=== PATIENT | female | born 1950 | race Caucasian/White ===

== ENCOUNTER 2022-05-24 18:43 | Emergency (ER) | payer MEDICARE, OTHER | END 2022-05-24 20:52 | disposition home or self-care (01) | LOC: JD.ED 18:43 | DX: M79.89 Other specified soft tissue disorders (principal); I10 Essential (primary) hypertension; Z91.041 Radiographic dye allergy status; Z79.899 Other long term (current) drug therapy; Z86.16 Personal history of COVID-19; Z90.49 Acquired absence of other specified parts of digestive tract; Z90.710 Acquired absence of both cervix and uterus | CPT/HCPCS: 36415; 85610; 85730; 93971-26-RT; 93971-RT; 99283; 99284 ==

== ENCOUNTER 2023-04-02 02:15 | Emergency (ER) | payer MEDICARE, OTHER ==
[2023-04-02] MEDS ORDERED: Sodium Chloride 0.9% 1,000 ML IV ONE (02:35)
[2023-04-02] MEDS ORDERED: Ondansetron 4 MG/2 ML SDV IVPUSH ONE (02:35)
[2023-04-02 02:42] LABS: HEMATOCRIT 40.8 % (34.1-44.9); MEAN CORPUSCULAR HEMOGLOBIN 30.5 pg (25.6-32.2); MEAN CORPUSCULAR HGB CONC 34.3 g/dl (32.2-35.5); MEAN CORPUSCULAR VOLUME 88.9 fl (79.4-94.8); MEAN PLATELET VOLUME 9.3 fl (9.4-12.3); PLATELET COUNT,PLT 379 K/mm3 (182-369); RED BLOOD CELL COUNT 4.59 M/mm3 (3.98-5.22); WHITE BLOOD CELL COUNT,WBC 22.88 K/mm3 (3.98-10.04)
[2023-04-02 02:59] LABS: A/G RATIO 0.9 (1-2); ALBUMIN 3.5 g/dl (3.4-5.0); ANION GAP 22.3 (5-15); BILIRUBIN TOTAL 1.7 mg/dL (0.2-1.0); C-REACTIVE PROTEIN 5.7 mg/dL (<1.0); EST CRCL DRUG DOSING (CG) 52.56 mL/min; MAGNESIUM 1.7 mg/dL (1.8-2.4); POTASSIUM,K 3.3 mEq/L (3.5-5.1); PROTEIN TOTAL,TP 7.3 g/dl (6.4-8.2)
[2023-04-02 03:10] LABS: BAND PERCENT MAN 1 % (0-10); BASOPHILS PERCENT MAN 0 (0.1-1.2); EOSINOPHILS PERCENT MAN 1 % (0.7-5.8); LYMPHOCYTES % ATYPICAL MANUAL 0 %; LYMPHOCYTES PERCENT MAN 5 % (20-40); MONOCYTES PERCENT MAN 5 % (2-10); PLATELET COUNT ESTIMATE ADEQUATE
[2023-04-02 03:12] LABS: APPEARANCE,URINE CLEAR (Clear); BILIRUBIN,URINE 1+ (Negative); COLOR,URINE YELLOW (Yellow); GLUCOSE,URINE NEGATIVE (Negative); KETONES,URINE 4+ (Negative); LEUKOCYTE ESTERASE,URINE NEGATIVE (Negative); NITRITE,URINE POSITIVE (Negative); OCCULT BLOOD,URINE TRACE-INTACT (Negative); PROTEIN,URINE 1+ (Negative)
[2023-04-02 03:21] LABS: BACTERIA,URINE MODERATE /hpf (FEW); RBC,URINE 0-5 /hpf (0-5); SQUAMOUS EPITHELIAL CELLS,UR 0-5 /hpf (0-5)
[2023-04-02 03:22] LABS: HYALINE CASTS,URINE 20-30 /lpf (0-5); MUCUS,URINE MANY /hpf (FEW)
[2023-04-02] MEDS ORDERED: cefTRIAXone 1 GM in Sodium Chloride 0.9% 100 ML IV STA (03:45)
== END 2023-04-02 05:57 | disposition home or self-care (01) ==
LOC: JD.ED 02:15
DX: A08.4 Viral intestinal infection, unspecified (principal); I95.1 Orthostatic hypotension; N39.0 Urinary tract infection, site not specified; E78.00 Pure hypercholesterolemia, unspecified; I10 Essential (primary) hypertension; Z79.899 Other long term (current) drug therapy; Z91.041 Radiographic dye allergy status; Z86.16 Personal history of COVID-19
CPT/HCPCS: 36415; 80053; 81001; 83735; 85007; 85027; 86140; 87086; 87088; 87186; 96361; 96365; 96375; 99284; J0696; J2405; J3490; J7030

== ENCOUNTER 2023-04-06 08:34 | Inpatient (IN) | payer MEDICARE, OTHER ==
[2023-04-06] MEDS ORDERED: Aspirin 81 MG Tab.Chew PO ONE (08:58)
[2023-04-06] MEDS ORDERED: Morphine 2 MG/ML SYRINGE IVPUSH ONE ×3 (09:02→12:16)
[2023-04-06] MEDS: Sodium Chloride 0.9% 10 ML Syringe FLUSH PRN ×2 (09:10→11:03)
[2023-04-06 09:25] LABS: INR 1.07; PROTHROMBIN TIME 11.4 SECONDS (9.7-12.0)
[2023-04-06 09:32] LABS: A/G RATIO 0.9 (1-2); ALBUMIN 3.8 g/dl (3.4-5.0); BILIRUBIN TOTAL 1.3 mg/dL (0.2-1.0); BUN/CREATININE RATIO 11.4 (14-18); C-REACTIVE PROTEIN 4.3 mg/dL (<1.0); CREATININE 0.7 mg/dL (0.55-1.02); EST CRCL DRUG DOSING (CG) 75.09 mL/min; MAGNESIUM 1.7 mg/dL (1.8-2.4); PROTEIN TOTAL,TP 8.1 g/dl (6.4-8.2); TSH 1.156 uIU/mL (0.358-3.74)
[2023-04-06 09:49] LABS: D-DIMER QUANTITATIVE 2.26 mg/L (0.19-0.50)
[2023-04-06] MEDS ORDERED: Sodium Chloride 0.9% 10 ML Syringe FLUSH ONE ×2 (10:01→11:02)
[2023-04-06] MEDS ORDERED: Iopamidol 755 Mg/ML 100 ML Bottle IVPUSH ONE ×2 (10:01→11:02)
[2023-04-06] MEDS ORDERED: LORazepam 2 MG/ML SDV IVPUSH ONE ×2 (10:12→12:17)
[2023-04-06] MEDS ORDERED: Sodium Chloride 0.9% 100 ML IV SCH ×2 (10:15→11:15)
[2023-04-06 11:36] LABS: APPEARANCE,URINE CLEAR (Clear); BILIRUBIN,URINE NEGATIVE (Negative); COLOR,URINE YELLOW (Yellow); GLUCOSE,URINE NEGATIVE (Negative); KETONES,URINE 4+ (Negative); LEUKOCYTE ESTERASE,URINE NEGATIVE (Negative); NITRITE,URINE NEGATIVE (Negative); OCCULT BLOOD,URINE TRACE-INTACT (Negative); PH,URINE 5.5 (5.0-8.0); PROTEIN,URINE TRACE (Negative); UROBILINOGEN,URINE 0.2 (0.2-1.0)
[2023-04-06 11:44] LABS: BACTERIA,URINE FEW /hpf (FEW); HYALINE CASTS,URINE 0-5 /lpf (0-5); MUCUS,URINE FEW /hpf (FEW); SQUAMOUS EPITHELIAL CELLS,UR 0-5 /hpf (0-5); WBC,URINE 0-5 /hpf (0-5)
[2023-04-06] MEDS ORDERED: Sodium Chloride 0.9% 1,000 ML IV SCH (11:45)
[2023-04-06 14:43] LABS: BASOPHILS ABSOLUTE AUTO 0.02 K/mm3 (0.01-0.08); BASOPHILS PERCENT AUTO 0.1 % (0.1-1.2); EOSINOPHILS PERCENT AUTO 0 (0.7-5.8); HEMATOCRIT 41.3 % (34.1-44.9); HEMOGLOBIN 14.4 gm/dl (11.2-15.7); IMMATURE GRAN ABSOLUTE AUTO 0.16 K/mm3 (0.00-0.10); IMMATURE GRAN PERCENT AUTO 0.6 % (<=1.0); LYMPHOCYTES ABSOLUTE AUTO 1.68 K/mm3 (1.18-3.74); LYMPHOCYTES PERCENT AUTO 6.6 % (19.3-51.7); MEAN CORPUSCULAR HEMOGLOBIN 30.8 pg (25.6-32.2); MEAN CORPUSCULAR HGB CONC 34.9 g/dl (32.2-35.5); MEAN CORPUSCULAR VOLUME 88.4 fl (79.4-94.8); MEAN PLATELET VOLUME 8.9 fl (9.4-12.3); MONOCYTES ABSOLUTE AUTO 2.33 K/mm3 (0.24-0.36); MONOCYTES PERCENT AUTO 9.2 % (4.7-12.5); NEUTROPHILS ABSOLUTE AUTO 21.11 K/mm3 (1.56-6.13); NEUTROPHILS PERCENT AUTO 83.5 % (34.0-71.1); PLATELET COUNT,PLT 541 K/mm3 (182-369); RED BLOOD CELL COUNT 4.67 M/mm3 (3.98-5.22)
[2023-04-06 15:19] LABS: SLIDE REVIEW ABNORMAL SMEAR
[2023-04-06] MEDS: Potassium Chloride 10 MEQ in Premix Bag 1 BAG IV SCH ×4 (15:29→18:02)
[2023-04-06] MEDS ORDERED: Bupivacaine 0.5%/EPINEPHrine 1:200,000 50 ML MDV ONE (15:50)
[2023-04-06] MEDS ORDERED: Lidocaine 1% 30 ML SDV ONE (15:50)
[2023-04-06] MEDS ORDERED: Lidocaine 1% 6 ML ONE (16:13)
[2023-04-06] MEDS ORDERED: Succinylcholine 200 MG/10 ML MDV ONE (16:13)
[2023-04-06] MEDS ORDERED: Etomidate 2 MG/ML 20 ML SDV IVPUSH ONE (16:14)
[2023-04-06] MEDS ORDERED: fentaNYL 250 MCG/5 ML SDV ONE (16:14)
[2023-04-06] MEDS ORDERED: Neostigmine Methylsulfate 10 MG/10 ML MDV ONE (16:16)
[2023-04-06] MEDS ORDERED: Midazolam 1 MG/ML 2 ML SDV ONE (16:23)
[2023-04-06] MEDS ORDERED: ceFAZolin 2 GM Vial ONE (16:29)
[2023-04-06] MEDS ORDERED: Phenylephrine 1% 10 MG/ML SDV ONE (16:54)
[2023-04-06] MEDS ORDERED: HYDROmorphone 0.5 MG/0.5 ML Syringe ONE (17:06)
[2023-04-06] MEDS ORDERED: Dexamethasone 4 MG/ML 5 ML MDV ONE (17:17)
[2023-04-06] MEDS ORDERED: Ondansetron 4 MG/2 ML SDV ONE (17:17)
[2023-04-06] MEDS ORDERED: fentaNYL 100 MCG/2 ML SDV IVPUSH PRN (17:50)
[2023-04-06] MEDS ORDERED: HYDROmorphone 0.5 MG/0.5 ML Syringe IVPUSH PRN (17:50)
[2023-04-06] MEDS ORDERED: Rocuronium 50 MG/5 ML Vial ONE (18:29)
[2023-04-06 19:47] LABS: ANION GAP 19.8 (5-15); BUN/CREATININE RATIO 8.9 (14-18); CALCIUM 8.1 mg/dL (8.5-10.1); CREATININE 0.9 mg/dL (0.55-1.02); EST CRCL DRUG DOSING (CG) 58.4 mL/min; POTASSIUM,K 3.8 mEq/L (3.5-5.1)
[2023-04-06] MEDS ORDERED: Lactated Ringers 1,000 ML ONE (20:11)
[2023-04-06] MEDS ORDERED: Lactated Ringers 1,000 ML IV ONE (21:31)
[2023-04-06] MEDS: D5 1/2 NS w/ 20 mEq/L KCl 1,000 ML IV SCH (21:43)
[2023-04-06] MEDS ORDERED: Dextrose 5%-Lact Ringers w/KCl 1,000 ML IV SCH (21:45)
[2023-04-06] MEDS: oxyCODONE 5 MG Tab PO PRN (23:04)
[2023-04-06] MEDS: Ibuprofen 400 MG Tab PO SCH (23:05)
[2023-04-06] MEDS: Rosuvastatin 10 MG Tab PO SCH (23:05)
[2023-04-06] MEDS: Acetaminophen 325 MG Tab PO SCH (23:06)
[2023-04-06] MEDS: Nitrofurantoin Monohydrate/Macrocrystalline 100 MG Cap PO SCH (23:06)
[2023-04-07] MEDS: Acetaminophen 325 MG Tab PO SCH ×7 (01:47→23:25)
[2023-04-07] MEDS: oxyCODONE 5 MG Tab PO PRN ×3 (03:01→20:49)
[2023-04-07] MEDS: Ibuprofen 400 MG Tab PO SCH ×4 (03:56→20:29)
[2023-04-07] MEDS: Pantoprazole 40 MG Tab.CR PO SCH (06:02)
[2023-04-07 06:14] LABS: ANION GAP 14.6 (5-15); BUN/CREATININE RATIO 12.5 (14-18); CALCIUM 7.6 mg/dL (8.5-10.1); CREATININE 0.8 mg/dL (0.55-1.02); EST CRCL DRUG DOSING (CG) 65.71 mL/min; POTASSIUM,K 3.6 mEq/L (3.5-5.1)
[2023-04-07 06:19] LABS: BASOPHILS ABSOLUTE AUTO 0.01 K/mm3 (0.01-0.08); EOSINOPHILS PERCENT AUTO 0 (0.7-5.8); HEMATOCRIT 37.9 % (34.1-44.9); IMMATURE GRAN ABSOLUTE AUTO 0.12 K/mm3 (0.00-0.10); IMMATURE GRAN PERCENT AUTO 0.4 % (<=1.0); LYMPHOCYTES ABSOLUTE AUTO 0.93 K/mm3 (1.18-3.74); LYMPHOCYTES PERCENT AUTO 3.4 % (19.3-51.7); MEAN CORPUSCULAR HEMOGLOBIN 30.5 pg (25.6-32.2); MEAN CORPUSCULAR HGB CONC 33.8 g/dl (32.2-35.5); MEAN CORPUSCULAR VOLUME 90.2 fl (79.4-94.8); MEAN PLATELET VOLUME 9.8 fl (9.4-12.3); MONOCYTES ABSOLUTE AUTO 1.57 K/mm3 (0.24-0.36); MONOCYTES PERCENT AUTO 5.8 % (4.7-12.5); NEUTROPHILS ABSOLUTE AUTO 24.47 K/mm3 (1.56-6.13); NEUTROPHILS PERCENT AUTO 90.4 % (34.0-71.1); PLATELET COUNT,PLT 484 K/mm3 (182-369)
[2023-04-07 06:21] LABS: HEMOGLOBIN 12.8 gm/dl (11.2-15.7)
[2023-04-07 06:58] LABS: SLIDE REVIEW ABNORMAL SMEAR
[2023-04-07] MEDS: D5 1/2 NS w/ 20 mEq/L KCl 1,000 ML IV SCH ×2 (08:49→20:27)
[2023-04-07] MEDS: Losartan 100 MG Tab PO SCH (08:50)
[2023-04-07] MEDS: Nitrofurantoin Monohydrate/Macrocrystalline 100 MG Cap PO SCH ×2 (08:50→20:29)
[2023-04-07] MEDS: amLODIPine 5 MG Tab PO SCH (08:51)
[2023-04-07] MEDS: Heparin Sodium 5,000 Units/ML Vial SUBCUT SCH ×3 (08:53→23:25)
[2023-04-07] MEDS: Rosuvastatin 10 MG Tab PO SCH (20:28)
[2023-04-07] MEDS ORDERED: Piperacillin/Tazobactam 4.5 GM in Sodium Chloride 0.9% 100 ML IV ONE (21:00)
[2023-04-07] MEDS ORDERED: Potassium Chloride 20 MEQ Tab.ER PO ONE (21:04)
[2023-04-07 21:35] LABS: MAGNESIUM 1.1 mg/dL (1.8-2.4); POTASSIUM,K 3.4 mEq/L (3.5-5.1)
[2023-04-07] MEDS: NS + KCl 20mEq/L 1,000 ML IV SCH (21:42)
[2023-04-07] MEDS: Insulin Lispro 100 Unit/ML 3 ML KwikPen SUBCUT SCH (22:10)
[2023-04-07] MEDS ORDERED: Magnesium Sulfate/Water 2 GM in Premix Bag 1 BAG IV ONE (22:19)
[2023-04-08] MEDS: Ibuprofen 400 MG Tab PO SCH ×4 (02:05→19:35)
[2023-04-08] MEDS: Piperacillin/Tazobactam 4.5 GM in Sodium Chloride 0.9% 100 ML IV SCH ×3 (04:56→21:21)
[2023-04-08] MEDS: Acetaminophen 325 MG Tab PO SCH ×5 (04:57→19:36)
[2023-04-08] MEDS: Pantoprazole 40 MG Tab.CR PO SCH ×2 (04:57→06:52)
[2023-04-08 05:03] LABS: BASOPHILS ABSOLUTE AUTO 0.01 K/mm3 (0.01-0.08); EOSINOPHILS ABSOLUTE AUTO 0.02 K/mm3 (0.04-0.36); EOSINOPHILS PERCENT AUTO 0.1 (0.7-5.8); HEMATOCRIT 34.4 % (34.1-44.9); HEMOGLOBIN 11.7 gm/dl (11.2-15.7); IMMATURE GRAN ABSOLUTE AUTO 0.24 K/mm3 (0.00-0.10); IMMATURE GRAN PERCENT AUTO 0.9 % (<=1.0); LYMPHOCYTES ABSOLUTE AUTO 1.27 K/mm3 (1.18-3.74); LYMPHOCYTES PERCENT AUTO 4.6 % (19.3-51.7); MEAN CORPUSCULAR HEMOGLOBIN 30.4 pg (25.6-32.2); MEAN CORPUSCULAR VOLUME 89.4 fl (79.4-94.8); MEAN PLATELET VOLUME 9.3 fl (9.4-12.3); MONOCYTES ABSOLUTE AUTO 1.46 K/mm3 (0.24-0.36); MONOCYTES PERCENT AUTO 5.3 % (4.7-12.5); NEUTROPHILS ABSOLUTE AUTO 24.58 K/mm3 (1.56-6.13); NEUTROPHILS PERCENT AUTO 89.1 % (34.0-71.1); PLATELET COUNT,PLT 423 K/mm3 (182-369); RED BLOOD CELL COUNT 3.85 M/mm3 (3.98-5.22); WHITE BLOOD CELL COUNT,WBC 27.58 K/mm3 (3.98-10.04)
[2023-04-08 05:17] LABS: HEMOGLOBIN A1C 6.6 %
[2023-04-08 05:22] LABS: ANION GAP 11.8 (5-15); BUN/CREATININE RATIO 11.1 (14-18); CREATININE 0.9 mg/dL (0.55-1.02); EST CRCL DRUG DOSING (CG) 58.4 mL/min; POTASSIUM,K 3.8 mEq/L (3.5-5.1)
[2023-04-08 06:09] LABS: SLIDE REVIEW ABNORMAL SMEAR
[2023-04-08] MEDS: Ondansetron 4 MG Tab.DIS PO PRN (06:52)
[2023-04-08] MEDS: Insulin Lispro 100 Unit/ML 3 ML KwikPen SUBCUT SCH ×4 (08:05→22:05)
[2023-04-08] MEDS: Heparin Sodium 5,000 Units/ML Vial SUBCUT SCH ×2 (08:31→15:32)
[2023-04-08] MEDS: amLODIPine 5 MG Tab PO SCH (08:32)
[2023-04-08] MEDS: NS + KCl 20mEq/L 1,000 ML IV SCH (08:33)
[2023-04-08] MEDS: Losartan 100 MG Tab PO SCH (08:33)
[2023-04-08] MEDS: Nitrofurantoin Monohydrate/Macrocrystalline 100 MG Cap PO SCH (08:33)
[2023-04-08] MEDS: oxyCODONE 5 MG Tab PO PRN (09:53)
[2023-04-08] MEDS: Potassium Chloride 20 MEQ Tab.ER PO SCH ×2 (09:54→21:21)
[2023-04-08] MEDS: Rosuvastatin 10 MG Tab PO SCH (21:21)
[2023-04-09] MEDS: Acetaminophen 325 MG Tab PO SCH ×4 (00:07→14:25)
[2023-04-09] MEDS: Ibuprofen 400 MG Tab PO SCH ×2 (02:08→08:01)
[2023-04-09] MEDS: Piperacillin/Tazobactam 4.5 GM in Sodium Chloride 0.9% 100 ML IV SCH ×3 (04:27→21:04)
[2023-04-09] MEDS: Pantoprazole 40 MG Tab.CR PO SCH (06:07)
[2023-04-09 06:20] LABS: A/G RATIO 0.6 (1-2); ALBUMIN 2.2 g/dl (3.4-5.0); ANION GAP 13.1 (5-15); BILIRUBIN TOTAL 0.8 mg/dL (0.2-1.0); BUN/CREATININE RATIO 14.3 (14-18); CALCIUM 7.8 mg/dL (8.5-10.1); CREATININE 0.7 mg/dL (0.55-1.02); EST CRCL DRUG DOSING (CG) 75.09 mL/min; MAGNESIUM 1.7 mg/dL (1.8-2.4); POTASSIUM,K 4.1 mEq/L (3.5-5.1); PROTEIN TOTAL,TP 5.7 g/dl (6.4-8.2)
[2023-04-09 06:24] LABS: BASOPHILS ABSOLUTE AUTO 0.01 K/mm3 (0.01-0.08); EOSINOPHILS ABSOLUTE AUTO 0.07 K/mm3 (0.04-0.36); EOSINOPHILS PERCENT AUTO 0.3 (0.7-5.8); HEMATOCRIT 33.9 % (34.1-44.9); HEMOGLOBIN 11.4 gm/dl (11.2-15.7); IMMATURE GRAN PERCENT AUTO 0.5 % (<=1.0); LYMPHOCYTES ABSOLUTE AUTO 1.32 K/mm3 (1.18-3.74); LYMPHOCYTES PERCENT AUTO 6.5 % (19.3-51.7); MEAN CORPUSCULAR HEMOGLOBIN 30.3 pg (25.6-32.2); MEAN CORPUSCULAR HGB CONC 33.6 g/dl (32.2-35.5); MEAN CORPUSCULAR VOLUME 90.2 fl (79.4-94.8); MEAN PLATELET VOLUME 10.1 fl (9.4-12.3); MONOCYTES ABSOLUTE AUTO 1.14 K/mm3 (0.24-0.36); MONOCYTES PERCENT AUTO 5.6 % (4.7-12.5); NEUTROPHILS ABSOLUTE AUTO 17.74 K/mm3 (1.56-6.13); NEUTROPHILS PERCENT AUTO 87.1 % (34.0-71.1); PLATELET COUNT,PLT 426 K/mm3 (182-369); RED BLOOD CELL COUNT 3.76 M/mm3 (3.98-5.22); WHITE BLOOD CELL COUNT,WBC 20.38 K/mm3 (3.98-10.04)
[2023-04-09] MEDS: Insulin Lispro 100 Unit/ML 3 ML KwikPen SUBCUT SCH ×4 (08:00→21:30)
[2023-04-09] MEDS: Heparin Sodium 5,000 Units/ML Vial SUBCUT SCH ×4 (08:12→23:38)
[2023-04-09] MEDS: amLODIPine 5 MG Tab PO SCH (08:12)
[2023-04-09] MEDS: Losartan 100 MG Tab PO SCH (08:13)
[2023-04-09] MEDS: Ondansetron 4 MG Tab.DIS PO PRN ×2 (10:28→22:26)
[2023-04-09] MEDS: Potassium Chloride 20 MEQ Tab.ER PO SCH (10:28)
[2023-04-09] MEDS ORDERED: Acetaminophen 325 MG Tab PO PRN (12:08)
[2023-04-09] MEDS ORDERED: Ibuprofen 400 MG Tab PO PRN (12:11)
[2023-04-09] MEDS ORDERED: Metoprolol Succinate 25 MG Tab.ER PO SCH ×2 (14:50→14:52)
[2023-04-09] MEDS: Metoprolol Succinate 25 MG Tab.ER PO SCH (16:21)
[2023-04-09] MEDS: Rosuvastatin 10 MG Tab PO SCH (21:04)
[2023-04-10] MEDS: Piperacillin/Tazobactam 4.5 GM in Sodium Chloride 0.9% 100 ML IV SCH (04:28)
[2023-04-10] MEDS: Pantoprazole 40 MG Tab.CR PO SCH (06:14)
[2023-04-10] MEDS: Insulin Lispro 100 Unit/ML 3 ML KwikPen SUBCUT SCH ×2 (06:59→11:30)
[2023-04-10] MEDS: Heparin Sodium 5,000 Units/ML Vial SUBCUT SCH ×3 (09:02→23:50)
[2023-04-10] MEDS: Metoprolol Succinate 25 MG Tab.ER PO SCH (09:02)
[2023-04-10] MEDS: Losartan 100 MG Tab PO SCH (09:02)
[2023-04-10] MEDS: Ondansetron 4 MG Tab.DIS PO PRN (10:12)
[2023-04-10 10:36] LABS: BASOPHILS ABSOLUTE AUTO 0.02 K/mm3 (0.01-0.08); BASOPHILS PERCENT AUTO 0.1 % (0.1-1.2); EOSINOPHILS ABSOLUTE AUTO 0.08 K/mm3 (0.04-0.36); EOSINOPHILS PERCENT AUTO 0.5 (0.7-5.8); HEMATOCRIT 36.8 % (34.1-44.9); HEMOGLOBIN 12.4 gm/dl (11.2-15.7); IMMATURE GRAN ABSOLUTE AUTO 0.21 K/mm3 (0.00-0.10); IMMATURE GRAN PERCENT AUTO 1.4 % (<=1.0); LYMPHOCYTES ABSOLUTE AUTO 1.99 K/mm3 (1.18-3.74); LYMPHOCYTES PERCENT AUTO 13.4 % (19.3-51.7); MEAN CORPUSCULAR HEMOGLOBIN 30.4 pg (25.6-32.2); MEAN CORPUSCULAR HGB CONC 33.7 g/dl (32.2-35.5); MEAN CORPUSCULAR VOLUME 90.2 fl (79.4-94.8); MEAN PLATELET VOLUME 9.3 fl (9.4-12.3); MONOCYTES ABSOLUTE AUTO 1.12 K/mm3 (0.24-0.36); MONOCYTES PERCENT AUTO 7.5 % (4.7-12.5); NEUTROPHILS ABSOLUTE AUTO 11.48 K/mm3 (1.56-6.13); NEUTROPHILS PERCENT AUTO 77.1 % (34.0-71.1); PLATELET COUNT,PLT 491 K/mm3 (182-369); RED BLOOD CELL COUNT 4.08 M/mm3 (3.98-5.22)
[2023-04-10 11:01] LABS: BUN/CREATININE RATIO 11.3 (14-18); CALCIUM 8.2 mg/dL (8.5-10.1); CREATININE 0.8 mg/dL (0.55-1.02); EST CRCL DRUG DOSING (CG) 65.71 mL/min
[2023-04-10 19:56] LABS: MAGNESIUM 1.7 mg/dL (1.8-2.4); PHOSPHORUS 1.7 mg/dL (2.6-4.7)
[2023-04-10] MEDS ORDERED: amLODIPine 5 MG Tab PO SCH (21:00)
[2023-04-10] MEDS ORDERED: Magnesium Sulfate/Water 2 GM/50 ML BAG IV STA (21:02)
[2023-04-10] MEDS: Rosuvastatin 10 MG Tab PO SCH (22:08)
[2023-04-11] MEDS: Pantoprazole 40 MG Tab.CR PO SCH (05:48)
[2023-04-11 06:27] LABS: BASOPHILS ABSOLUTE AUTO 0.04 K/mm3 (0.01-0.08); BASOPHILS PERCENT AUTO 0.3 % (0.1-1.2); EOSINOPHILS ABSOLUTE AUTO 0.08 K/mm3 (0.04-0.36); EOSINOPHILS PERCENT AUTO 0.7 (0.7-5.8); HEMATOCRIT 35.6 % (34.1-44.9); IMMATURE GRAN ABSOLUTE AUTO 0.51 K/mm3 (0.00-0.10); IMMATURE GRAN PERCENT AUTO 4.4 % (<=1.0); LYMPHOCYTES ABSOLUTE AUTO 2.55 K/mm3 (1.18-3.74); LYMPHOCYTES PERCENT AUTO 21.8 % (19.3-51.7); MEAN CORPUSCULAR HEMOGLOBIN 30.6 pg (25.6-32.2); MEAN CORPUSCULAR HGB CONC 33.7 g/dl (32.2-35.5); MEAN CORPUSCULAR VOLUME 90.8 fl (79.4-94.8); MEAN PLATELET VOLUME 9.7 fl (9.4-12.3); MONOCYTES ABSOLUTE AUTO 1.42 K/mm3 (0.24-0.36); MONOCYTES PERCENT AUTO 12.1 % (4.7-12.5); NEUTROPHILS ABSOLUTE AUTO 7.11 K/mm3 (1.56-6.13); NEUTROPHILS PERCENT AUTO 60.7 % (34.0-71.1); PLATELET COUNT,PLT 462 K/mm3 (182-369); RED BLOOD CELL COUNT 3.92 M/mm3 (3.98-5.22); WHITE BLOOD CELL COUNT,WBC 11.71 K/mm3 (3.98-10.04)
[2023-04-11 06:34] LABS: ANION GAP 13.7 (5-15); BUN/CREATININE RATIO 14.3 (14-18); CALCIUM 8.3 mg/dL (8.5-10.1); CREATININE 0.7 mg/dL (0.55-1.02); EST CRCL DRUG DOSING (CG) 75.09 mL/min; MAGNESIUM 2.1 mg/dL (1.8-2.4); POTASSIUM,K 3.7 mEq/L (3.5-5.1)
[2023-04-11] MEDS: Heparin Sodium 5,000 Units/ML Vial SUBCUT SCH (08:10)
[2023-04-11] MEDS: Losartan 100 MG Tab PO SCH (08:11)
[2023-04-11] MEDS: Metoprolol Succinate 25 MG Tab.ER PO SCH (08:11)
[2023-04-11 08:55] LABS: SLIDE REVIEW ABNORMAL SMEAR
== END 2023-04-11 15:15 | disposition home or self-care (01) | DRG 358 ==
LOC: JD.ED 08:34 → JD.SDS 15:41 → JD.MS 19:29 → OBSVTOIN 04-08 11:53
PROVIDERS: ADMIT Surgery; ATTEND Surgery
PROC: 0FT44ZZ Resection of Gallbladder, Percutaneous Endoscopic Approach (ICD-10-PCS; principal; 2023-04-06)
DX: K80.12 Calculus of gallbladder with acute and chronic cholecystitis without obstruction (principal); K56.7 Ileus, unspecified; K82.8 Other specified diseases of gallbladder; K82.A1 Gangrene of gallbladder in cholecystitis; D64.9 Anemia, unspecified; R00.0 Tachycardia, unspecified; E87.6 Hypokalemia; K21.9 Gastro-esophageal reflux disease without esophagitis; R73.9 Hyperglycemia, unspecified; E78.49 Other hyperlipidemia; E83.42 Hypomagnesemia; I49.9 Cardiac arrhythmia, unspecified; R19.7 Diarrhea, unspecified; L57.0 Actinic keratosis; Z90.49 Acquired absence of other specified parts of digestive tract; Z98.51 Tubal ligation status; Z90.711 Acquired absence of uterus with remaining cervical stump; Z98.890 Other specified postprocedural states; K43.2 Incisional hernia without obstruction or gangrene; Z91.041 Radiographic dye allergy status; Z98.84 Bariatric surgery status; Z90.710 Acquired absence of both cervix and uterus; Z98.1 Arthrodesis status; Z88.8 Allergy status to other drugs, medicaments and biological substances; I10 Essential (primary) hypertension; E78.00 Pure hypercholesterolemia, unspecified; M54.50 Low back pain, unspecified; Z79.899 Other long term (current) drug therapy
CPT/HCPCS: 36415 ×3; 47562; 71045; 71275; 74018; 76705; 80048 ×3; 80053; 81001; 82550; 82947 ×3; 83036; 83735 ×3; 83880; 84132; 84443; 84484; 85025 ×3; 85379; 85610; 85652; 85730; 86140; 93005; 94761; 96361; 96365; 96366 ×3; 96368 ×2; 96372 ×2; 96375 ×2; 96376; 99285; A9270 ×37; G0378 ×4; J0330; J0690; J1100; J1170 ×2; J1644 ×4; J1815; J2060 ×2; J2250; J2270 ×3; J2370; J2405; J2543 ×2; J2710; J3010; J3475; J3480 ×9; J3490 ×7; J7030; J7120 ×2; Q9967; 00790; 84100; 93010; 99100; 99140; 99222; 99231; 99284

== ENCOUNTER 2024-05-29 13:54 | Day surgery (SDC) | payer MEDICARE, OTHER ==
[2024-05-29] MEDS: Polymyxin B/Trimethoprim 10 ML Bottle EYERT SCH (14:14)
[2024-05-29] MEDS: Brimonidine 0.2% Ophth Soln 5 ML Bottle EYERT SCH (14:26)
[2024-05-29] MEDS: Phenylephrine 2.5% Ophth Soln 2 ML Bot EYERT SCH (14:31)
[2024-05-29] MEDS: Tropicamide 1% Ophth Soln 3 ML Bottle EYERT SCH (14:35)
[2024-05-29] MEDS: Tetracaine HCl/PF 0.5% 4 ML Bottle EYEBOTH SCH (15:17)
[2024-05-29] MEDS: Lidocaine 1% PF 2 ML SDV INJECT SCH (15:36)
[2024-05-29] MEDS: Pilocarpine 4% Ophth Soln 15 ML Bot EYERT SCH (15:46)
[2024-05-29] MEDS: Cefuroxime 10 MG/ML SYRINGE EYERT SCH (15:46)
== END 2024-05-29 15:58 | disposition home or self-care (01) ==
LOC: JD.SDS 13:54
PROVIDERS: ATTEND Ophthalmology
DX: H25.813 Combined forms of age-related cataract, bilateral (principal); H35.3131 Nonexudative age-related macular degeneration, bilateral, early dry stage; H43.813 Vitreous degeneration, bilateral; H16.103 Unspecified superficial keratitis, bilateral; H16.223 Keratoconjunctivitis sicca, not specified as Sjogren's, bilateral; I10 Essential (primary) hypertension; E78.2 Mixed hyperlipidemia; F41.9 Anxiety disorder, unspecified; K21.9 Gastro-esophageal reflux disease without esophagitis; Z79.899 Other long term (current) drug therapy
CPT/HCPCS: 66984; A9270; J0697; J3490; V2632

== ENCOUNTER 2024-06-20 09:24 | Emergency (ER) | payer MEDICARE, OTHER ==
[2024-06-20] MEDS: HYDROmorphone 1 MG/ML Syringe IM ONE (10:02)
[2024-06-20] MEDS: LORazepam 2 MG/ML SDV IM ONE (11:21)
[2024-06-20] MEDS: LORazepam 2 MG/ML SDV IVPUSH ONE (12:31)
[2024-06-20] MEDS: Sodium Chloride 0.9% 10 ML Syringe FLUSH PRN (12:36)
[2024-06-20 13:05] LABS: APPEARANCE,URINE SLT CLOUDY (Clear); BILIRUBIN,URINE NEGATIVE (Negative); COLOR,URINE YELLOW (Yellow); GLUCOSE,URINE NEGATIVE (Negative); KETONES,URINE NEGATIVE (Negative); LEUKOCYTE ESTERASE,URINE 2+ (Negative); NITRITE,URINE NEGATIVE (Negative); OCCULT BLOOD,URINE TRACE-INTACT (Negative); PH,URINE 6.5 (5.0-8.0); PROTEIN,URINE NEGATIVE (Negative); UROBILINOGEN,URINE 0.2 (0.2-1.0)
[2024-06-20 13:19] LABS: BACTERIA,URINE MANY /hpf (FEW); EPITHELIAL CELLS,URINE 0-5 /hpf (0-5); MUCUS,URINE FEW /hpf (FEW); RBC,URINE 0-5 /hpf (0-5)
== END 2024-06-20 17:00 | disposition home or self-care (01) ==
LOC: JD.ED 09:24
DX: M54.30 Sciatica, unspecified side (principal); M79.672 Pain in left foot; I10 Essential (primary) hypertension; E78.00 Pure hypercholesterolemia, unspecified; K21.9 Gastro-esophageal reflux disease without esophagitis; Z86.16 Personal history of COVID-19; Z90.49 Acquired absence of other specified parts of digestive tract; Z90.710 Acquired absence of both cervix and uterus; Z79.899 Other long term (current) drug therapy; Z91.048 Other nonmedicinal substance allergy status
CPT/HCPCS: 72131; 72192; 73552; 73590; 73630; 81001; 87086; 96372; 96374; 99284; J1170; J2060; J3490; 87088; 87186

== ENCOUNTER 2024-06-21 16:25 | Emergency (ER) | payer MEDICARE, OTHER ==
[2024-06-21 17:07] LABS: BASOPHILS ABSOLUTE AUTO 0.1 K/mm3 (0.0-0.2); BASOPHILS PERCENT AUTO 0.7 % (0.0-1.0); EOSINOPHILS ABSOLUTE AUTO 0.1 K/mm3 (0.0-0.4); HEMATOCRIT 40.8 % (37.0-47.0); HEMOGLOBIN 13.8 gm/dl (12.0-16.0); IMMATURE GRAN ABSOLUTE AUTO 0.07 K/mm3 (0.00-0.05); IMMATURE GRAN PERCENT AUTO 0.8 % (0.0-0.4); LYMPHOCYTES ABSOLUTE AUTO 2.6 K/mm3 (1.0-4.8); LYMPHOCYTES PERCENT AUTO 28.7 % (24.0-44.0); MEAN CORPUSCULAR HEMOGLOBIN 31.2 pg (28.0-32.0); MEAN CORPUSCULAR HGB CONC 33.8 g/dl (32.0-36.0); MEAN CORPUSCULAR VOLUME 92.1 fl (83.0-99.0); MEAN PLATELET VOLUME 8.4 fl (9.4-12.3); MONOCYTES ABSOLUTE AUTO 1.1 K/mm3 (0.0-0.8); MONOCYTES PERCENT AUTO 12.3 % (0.0-8.0); NEUTROPHILS ABSOLUTE AUTO 5.1 K/mm3 (1.8-7.7); NEUTROPHILS PERCENT AUTO 56.5 % (41.0-71.0); PLATELET COUNT,PLT 322 K/mm3 (150-400); RED BLOOD CELL COUNT 4.43 M/mm3 (4.10-5.30); WHITE BLOOD CELL COUNT,WBC 8.94 K/mm3 (3.9-11.3)
[2024-06-21 17:31] LABS: A/G RATIO 1.2 (1-2); ALBUMIN 3.8 g/dl (3.4-5.0); ANION GAP 14.9 (5-15); BILIRUBIN TOTAL 1.7 mg/dL (0.2-1.0); BUN/CREATININE RATIO 17.5 (14-18); CALCIUM 8.6 mg/dL (8.5-10.1); CREATININE 0.8 mg/dL (0.55-1.02); EST CRCL DRUG DOSING (CG) 64.69 mL/min; POTASSIUM,K 3.9 mEq/L (3.5-5.1)
[2024-06-21 17:34] LABS: LACTIC ACID 1.3 mmol/L (0.4-2.0)
[2024-06-21] MEDS: Sodium Chloride 0.9% 1,000 ML IV SCH (18:00)
[2024-06-21] MEDS: Diazepam 2 MG Tab PO ONE (18:10)
[2024-06-21] MEDS: oxyCODONE 5 MG Tab PO ONE (19:29)
[2024-06-21] MEDS: Ketorolac 30 MG/ML SDV IVPUSH ONE (20:42)
[2024-06-21 21:25] LABS: APPEARANCE,URINE CLEAR (Clear); BILIRUBIN,URINE NEGATIVE (Negative); COLOR,URINE LIGHT YELLOW (Yellow); GLUCOSE,URINE NEGATIVE (Negative); KETONES,URINE NEGATIVE (Negative); LEUKOCYTE ESTERASE,URINE NEGATIVE (Negative); NITRITE,URINE NEGATIVE (Negative); OCCULT BLOOD,URINE 1+ (Negative); PROTEIN,URINE NEGATIVE (Negative)
[2024-06-21 21:43] LABS: BACTERIA,URINE RARE /hpf (FEW); MUCUS,URINE NOT SEEN /hpf (FEW); SQUAMOUS EPITHELIAL CELLS,UR 0-5 /hpf (0-5); WBC,URINE 0-5 /hpf (0-5)
== END 2024-06-21 22:37 | disposition home or self-care (01) ==
LOC: JD.ED 16:25
DX: M54.42 Lumbago with sciatica, left side (principal); G89.4 Chronic pain syndrome; E87.1 Hypo-osmolality and hyponatremia; I10 Essential (primary) hypertension; E78.00 Pure hypercholesterolemia, unspecified; K21.9 Gastro-esophageal reflux disease without esophagitis; Z86.16 Personal history of COVID-19; Z90.49 Acquired absence of other specified parts of digestive tract; Z90.710 Acquired absence of both cervix and uterus; Z79.899 Other long term (current) drug therapy; Z91.041 Radiographic dye allergy status
CPT/HCPCS: 36415; 80053; 81001; 83605; 85025; 86140; 93005; 96361; 96374; 99285; A9270; J1885; J7030; U0002